=== PATIENT | male | born 1965 | race Caucasian/White ===

== ENCOUNTER 2016-12-20 16:18 | Inpatient (IN) | payer MEDICARE, MEDICAID ==
[~2016-12-20] VITALS: Ht 167.6 cm; Wt 106.1 kg
[~2016-12-20 16:18] MED LIST: FLUO20CA30 PO
[2016-12-20 18:23] LABS: ANION GAP 21 mmol/L (8-16); CALCIUM, TOTAL 9.5 mg/dL (8.8-10.5); CARBON DIOXIDE 20 mmol/L (22-29); CHLORIDE 103 mmol/L (98-107); CREATININE 2.16 mg/dL (0.60-1.30); GLOMERULAR FILTR. RATE CALC 32 mL/min (>60); POTASSIUM 3.8 mmol/L (3.5-5.1); SODIUM SERUM 144 mmol/L (136-145); UREA NITROGEN, BLOOD 12 mg/dL (7-18)
[2016-12-20 18:30] LABS: BASOPHILS % (AUTO) 0.3 % (0.0-2.0); EOSINOPHILS % (AUTO) 0 % (1.0-6.0); HEMOGLOBIN 14.3 g/dL (13.5-17.5); LYMPHOCYTES # (AUTO) 1.9 K/uL (1.0-4.8); LYMPHOCYTES % (AUTO) 10.7 % (22.0-44.0); MEAN CORPUSCULAR HEMOGLOBIN 27.1 pg (26.0-34.0); MEAN CORPUSCULAR HGB CONC 32.4 G/dL (31.0-37.0); MEAN CORPUSCULAR VOLUME 83 fL (80-100); MONOCYTES # (AUTO) 0.7 K/uL (0.1-1.0); MONOCYTES % (AUTO) 3.7 % (2.0-9.0); NEUTROPHILS # (AUTO) 15.4 K/uL (1.8-7.7); NEUTROPHILS % (AUTO) 85.3 % (40.0-70.0); PLATELET COUNT (AUTO) 392 K/uL (150-450); RED BLOOD CELL COUNT(AUTO) 5.27 MIL/uL (4.50-5.90); RED CELL DISTRIBUTION WIDTH 14.2 % (11.5-14.5); WHITE BLOOD COUNT (AUTO) 18.1 K/uL (4.5-11.0)
[2016-12-20 18:31] LABS: ALANINE AMINOTRANSFERASE 50 U/L (12-78); ALBUMIN 4.3 g/dL (3.4-5.0); ASPARTATE AMINOTRANSFERASE 38 U/L (15-37); BILIRUBIN,TOTAL 0.8 mg/dL (0.1-1.0)
[2016-12-20] MEDS ORDERED: LORazepam 2 MG TABLET PO PRN (20:00)
[2016-12-20] MEDS ORDERED: HALOPERIDOL 5 MG TABLET PO PRN ×2 (20:00→20:45)
[2016-12-20] MEDS ORDERED: ZOLPIDEM TARTRATE 10 MG TABLET PO PRN ×2 (20:00→20:45)
[2016-12-21] VITALS (8 sets, daily range): BP systolic 110–136; BP diastolic 57–90
[2016-12-21] MEDS ORDERED: INFLUENZA VIRUS VACCINE QVS 2016-17 (3YR+)/PF 60 MCG/0.5 ML SYRINGE IM ONE (01:30)
[2016-12-21] MEDS: LORazepam 2 MG TABLET PO PRN ×2 (02:16→07:46)
[2016-12-21] MEDS ORDERED: LORazepam 2 MG TABLET PO PRN (12:00)
[2016-12-21] MEDS ORDERED: CYANOCOBALAMIN 1,000 MCG/ML VIAL IM SCH (12:15)
[2016-12-21] MEDS ORDERED: MAG HYDROX/AL HYDROX/SIMETH ES 30 ML SUSPENSION UDCUP PO PRN (12:30)
[2016-12-21] MEDS ORDERED: MAGNESIUM HYDROXIDE SUSPENSION 30 ML UDCUP PO PRN (12:30)
[2016-12-21] MEDS ORDERED: CloNIDine HCL 0.1 MG TABLET PO PRN (12:30)
[2016-12-21] MEDS ORDERED: BENZOCAINE/MENTHOL LOZENGE MM PRN (12:30)
[2016-12-21] MEDS ORDERED: BACITRACIN 28.4 GM OINTMENT TP PRN (12:30)
[2016-12-21] MEDS ORDERED: PETROLATUM,WHITE 71 GM JELLY TP PRN (12:30)
[2016-12-21] MEDS ORDERED: LOPERAMIDE HCL 2 MG CAPSULE PO PRN (12:30)
[2016-12-21] MEDS ORDERED: IBUPROFEN 600 MG TABLET PO PRN (12:30)
[2016-12-21] MEDS ORDERED: ACETAMINOPHEN 325 MG TABLET PO PRN (12:30)
[2016-12-21] MEDS ORDERED: ONDANSETRON HCL 4 MG TABLET PO PRN (12:30)
[2016-12-21] MEDS ORDERED: ALBUTEROL SULFATE HFA 90 MCG/PUFF 8 GM INHALER IH PRN (12:30)
[2016-12-21] MEDS: FOLIC ACID 1 MG TABLET PO SCH (12:50)
[2016-12-21] MEDS: MULTIVITAMINS WITH MINERALS, THERAPEUTIC TABLET PO SCH (12:50)
[2016-12-21] MEDS: LORazepam 2 MG TABLET PO SCH ×4 (12:52→21:14)
[2016-12-21] MEDS: THIAMINE HCL 100 MG TABLET PO SCH (18:01)
[2016-12-21] MEDS: RisperiDONE 1 MG TABLET PO SCH (21:14)
[2016-12-22 03:00] VITALS: BP 127/77
[2016-12-22 07:00] VITALS: BP 135/83
[2016-12-22 07:08] LABS: BASOPHILS % (AUTO) 0.3 % (0.0-2.0); EOSINOPHILS % (AUTO) 0.7 % (1.0-6.0); HEMATOCRIT 42.6 % (41-53); HEMOGLOBIN 13.7 g/dL (13.5-17.5); LYMPHOCYTES # (AUTO) 1.4 K/uL (1.0-4.8); LYMPHOCYTES % (AUTO) 14.6 % (22.0-44.0); MEAN CORPUSCULAR HEMOGLOBIN 27.2 pg (26.0-34.0); MEAN CORPUSCULAR HGB CONC 32.2 G/dL (31.0-37.0); MEAN CORPUSCULAR VOLUME 84 fL (80-100); MONOCYTES # (AUTO) 0.7 K/uL (0.1-1.0); NEUTROPHILS # (AUTO) 7.3 K/uL (1.8-7.7); NEUTROPHILS % (AUTO) 77.4 % (40.0-70.0); PLATELET COUNT (AUTO) 331 K/uL (150-450); RED BLOOD CELL COUNT(AUTO) 5.05 MIL/uL (4.50-5.90); RED CELL DISTRIBUTION WIDTH 14.3 % (11.5-14.5); WHITE BLOOD COUNT (AUTO) 9.5 K/uL (4.5-11.0)
[2016-12-22 07:52] LABS: ALANINE AMINOTRANSFERASE 41 U/L (12-78); ALBUMIN 3.2 g/dL (3.4-5.0); ANION GAP 10 mmol/L (8-16); ASPARTATE AMINOTRANSFERASE 25 U/L (15-37); BILIRUBIN,TOTAL 0.6 mg/dL (0.1-1.0); CALCIUM, TOTAL 8.3 mg/dL (8.8-10.5); CARBON DIOXIDE 28 mmol/L (22-29); CHLORIDE 106 mmol/L (98-107); CHOL/HDL RATIO 3.3 (4.2-7.3); GLOMERULAR FILTR. RATE CALC > 60 mL/min (>60); PHOSPHORUS 2.4 mg/dL (2.5-4.9); POTASSIUM 3.5 mmol/L (3.5-5.1); SODIUM SERUM 144 mmol/L (136-145); THYROID STIMULATING HORMONE 0.86 uIU/mL (0.36-3.74); TOTAL PROTEIN, SERUM 6.6 g/dL (6.4-8.2); UREA NITROGEN, BLOOD 14 mg/dL (7-18)
[2016-12-22 08:05] VITALS: BP 131/85
[2016-12-22] MEDS: FLUoxetine HCL 20 MG CAPSULE PO SCH (09:01)
[2016-12-22] MEDS: LORazepam 2 MG TABLET PO SCH ×3 (09:02→16:29)
[2016-12-22] MEDS: FOLIC ACID 1 MG TABLET PO SCH (09:02)
[2016-12-22] MEDS: THIAMINE HCL 100 MG TABLET PO SCH ×2 (09:03→16:29)
[2016-12-22] MEDS: MULTIVITAMINS WITH MINERALS, THERAPEUTIC TABLET PO SCH (09:03)
[2016-12-22 11:00] VITALS: BP 136/92
[2016-12-22 19:01] VITALS: BP 137/92
[2016-12-22] MEDS: RisperiDONE 1 MG TABLET PO SCH (20:19)
[2016-12-23 06:27] VITALS: BP 123/76
[2016-12-23] MEDS ORDERED: LORazepam 1 MG TABLET PO PRN (07:00)
[2016-12-23 08:07] VITALS: BP 114/64
[2016-12-23 09:22] LABS: HEPATITIS Bs ANTIGEN SCREEN P Negative (Negative); HEPATITIS C AB SCREEN <0.1 s/co ratio (0.0-0.9)
[2016-12-23] MEDS: FOLIC ACID 1 MG TABLET PO SCH (09:50)
[2016-12-23] MEDS: THIAMINE HCL 100 MG TABLET PO SCH ×2 (09:50→17:23)
[2016-12-23] MEDS: FLUoxetine HCL 20 MG CAPSULE PO SCH (09:51)
[2016-12-23] MEDS: MULTIVITAMINS WITH MINERALS, THERAPEUTIC TABLET PO SCH (09:51)
[2016-12-23] MEDS: LORazepam 1 MG TABLET PO SCH ×4 (09:52→20:30)
[2016-12-23 16:30] VITALS: BP 131/81
[2016-12-23] MEDS: RisperiDONE 1 MG TABLET PO SCH (20:30)
[2016-12-24 06:25] VITALS: BP 106/60
[2016-12-24] MEDS ORDERED: LORazepam 1 MG TABLET PO PRN (07:00)
[2016-12-24 08:13] VITALS: BP 118/78
[2016-12-24] MEDS: FLUoxetine HCL 20 MG CAPSULE PO SCH (09:41)
[2016-12-24] MEDS: MULTIVITAMINS WITH MINERALS, THERAPEUTIC TABLET PO SCH (09:41)
[2016-12-24] MEDS: CHOLECALCIFEROL (VIT D3) 1,000 UNITS TABLET PO SCH (09:41)
[2016-12-24] MEDS: THIAMINE HCL 100 MG TABLET PO SCH ×2 (09:41→17:08)
[2016-12-24] MEDS: FOLIC ACID 1 MG TABLET PO SCH (09:42)
[2016-12-24 18:04] VITALS: BP 127/94
[2016-12-24] MEDS: RisperiDONE 1 MG TABLET PO SCH (20:02)
[2016-12-25 05:11] VITALS: BP 119/80
[2016-12-25 08:24] VITALS: BP 135/95
[2016-12-25] MEDS: THIAMINE HCL 100 MG TABLET PO SCH ×2 (09:41→16:06)
[2016-12-25] MEDS: CHOLECALCIFEROL (VIT D3) 1,000 UNITS TABLET PO SCH (09:41)
[2016-12-25] MEDS: MULTIVITAMINS WITH MINERALS, THERAPEUTIC TABLET PO SCH (09:42)
[2016-12-25] MEDS: FLUoxetine HCL 20 MG CAPSULE PO SCH (09:42)
[2016-12-25] MEDS: FOLIC ACID 1 MG TABLET PO SCH (09:42)
[2016-12-25] MEDS: RisperiDONE 1 MG TABLET PO SCH (20:14)
[2016-12-25 20:57] VITALS: BP 126/85
[2016-12-26 08:00] VITALS: BP 108/68
[2016-12-26] MEDS ORDERED: RISP1 PO (08:46)
[2016-12-26] MEDS: FOLIC ACID 1 MG TABLET PO SCH (09:45)
[2016-12-26] MEDS: FLUoxetine HCL 20 MG CAPSULE PO SCH (09:45)
[2016-12-26] MEDS: MULTIVITAMINS WITH MINERALS, THERAPEUTIC TABLET PO SCH (09:45)
[2016-12-26] MEDS: CHOLECALCIFEROL (VIT D3) 1,000 UNITS TABLET PO SCH (09:45)
[2016-12-26] MEDS: THIAMINE HCL 100 MG TABLET PO SCH (09:45)
== END 2016-12-26 12:35 | disposition home or self-care (01) | DRG 885 ==
LOC: EMS 16:24 → 3EI 23:45
PROC: 3E0234Z Introduction of Serum, Toxoid and Vaccine into Muscle, Percutaneous Approach (ICD-10-PCS; principal; 2016-12-21)
DX: F33.3 Major depressive disorder, recurrent, severe with psychotic symptoms (principal); R45.851 Suicidal ideations; N17.9 Acute kidney failure, unspecified; F20.0 Paranoid schizophrenia; E86.0 Dehydration; G89.29 Other chronic pain; M54.9 Dorsalgia, unspecified; E66.9 Obesity, unspecified; J44.9 Chronic obstructive pulmonary disease, unspecified; R74.0 Nonspecific elevation of levels of transaminase and lactic acid dehydrogenase [LDH]; F17.210 Nicotine dependence, cigarettes, uncomplicated; F15.10 Other stimulant abuse, uncomplicated; F10.10 Alcohol abuse, uncomplicated; Z71.6 Tobacco abuse counseling; Z79.899 Other long term (current) drug therapy; Z71.41 Alcohol abuse counseling and surveillance of alcoholic; Z71.51 Drug abuse counseling and surveillance of drug abuser; Z23 Encounter for immunization; Z68.37 Body mass index [BMI] 37.0-37.9, adult; Z91.5 Personal history of self-harm
CPT/HCPCS: 80074; 82306; 83735; 84100; 84443; 90471; 99285; G0480; J3420; J3535

== ENCOUNTER 2017-08-14 17:51 | Inpatient (IN) | payer MEDICARE, MEDICAID ==
[~2017-08-14] VITALS: Ht 167.6 cm; Wt 92.6 kg
[~2017-08-14 17:51] MED LIST changes: +RISP1 PO
[2017-08-14 19:16] LABS: BASOPHILS # (AUTO) 0.01 K/uL (0.00-0.20); BASOPHILS % (AUTO) 0.1 % (0.0-2.0); EOSINOPHILS # (AUTO) 0.03 K/uL (0.00-0.70); EOSINOPHILS % (AUTO) 0.21 % (1.0-6.0); HEMATOCRIT 44.9 % (41-53); HEMOGLOBIN 15.1 g/dL (13.5-17.5); LYMPHOCYTES # (AUTO) 1.9 K/uL (1.0-4.8); LYMPHOCYTES % (AUTO) 12.8 % (22.0-44.0); MEAN CORPUSCULAR HEMOGLOBIN 31.5 pg (26.0-34.0); MEAN CORPUSCULAR HGB CONC 33.7 G/dL (31.0-37.0); MEAN CORPUSCULAR VOLUME 93 fL (80-100); MONOCYTES # (AUTO) 0.2 K/uL (0.1-1.0); MONOCYTES % (AUTO) 1.4 % (2.0-9.0); NEUTROPHILS # (AUTO) 12.9 K/uL (1.8-7.7); PLATELET COUNT (AUTO) 326 K/uL (150-450); RED BLOOD CELL COUNT(AUTO) 4.81 MIL/uL (4.50-5.90); RED CELL DISTRIBUTION WIDTH 14.2 % (11.5-14.5)
[2017-08-14 19:20] LABS: NEUTROPHILS % (AUTO) 85.5 % (40.0-70.0)
[2017-08-14 19:30] LABS: ANION GAP 10 mmol/L (8-16); CALCIUM, TOTAL 8.9 mg/dL (8.8-10.5); CARBON DIOXIDE 24 mmol/L (22-29); CHLORIDE 103 mmol/L (98-107); CREATININE 1.13 mg/dL (0.60-1.30); GLOMERULAR FILTR. RATE CALC > 60 mL/min (>60); GLUCOSE,RANDOM 102 mg/dL (70-110); POTASSIUM 4.1 mmol/L (3.5-5.1); SODIUM SERUM 137 mmol/L (136-145); UREA NITROGEN, BLOOD 13 mg/dL (7-18)
[2017-08-14 19:44] LABS: ALANINE AMINOTRANSFERASE 29 U/L (12-78); ALBUMIN 4.1 g/dL (3.4-5.0); ALKALINE PHOSPHATASE 113 U/L (46-116); ASPARTATE AMINOTRANSFERASE 30 U/L (15-37); BILIRUBIN,TOTAL 0.7 mg/dL (0.1-1.0); TOTAL PROTEIN, SERUM 7.5 g/dL (6.4-8.2)
[2017-08-14] MEDS ORDERED: LORazepam 2 MG TABLET PO PRN (19:45)
[2017-08-14] MEDS ORDERED: OLANZapine 5 MG RAPDIS TABLET PO PRN (19:45)
[2017-08-14 20:22] LABS: CHOL/HDL RATIO 3.7 (4.2-7.3); CHOLESTEROL 197 mg/dL (131-200); HDL CHOLESTEROL 53 mg/dL (40-60); LDL CHOL (CALC.) 134 mg/dL (0-130); THYROID STIMULATING HORMONE 0.73 uIU/mL (0.36-3.74); TRIGLYCERIDES 50 mg/dL (15-150)
[2017-08-14 20:59] LABS: APPEARANCE,URINE CLOUDY (CLEAR); BILIRUBIN,URINE NEGATIVE (NEGATIVE); GLUCOSE, URINE (UA) NEGATIVE (NEGATIVE); KETONES,URINE 15 mg/dL (NEGATIVE); LEUKOCYTE ESTERASE ,URINE NEGATIVE (NEGATIVE); NITRATE,URINE NEGATIVE (NEGATIVE); OCCULT BLOOD,URINE NEGATIVE (NEGATIVE); PROTEIN,URINE NEGATIVE (NEGATIVE); UROBILINOGEN,URINE 0.2 mg/dL (<=1.0)
[2017-08-14 21:02] LABS: AMPHET/METH SCREEN,URINE POSITIVE (NEGATIVE); BARBITURATE SCREEN, URINE NEGATIVE (NEGATIVE); BENZODIAZEPINES SCREEN,URINE NEGATIVE (NEGATIVE); CANNABINOID SCREEN,URINE NEGATIVE (NEGATIVE); COCAINE SCREEN,URINE NEGATIVE (NEGATIVE); METHADONE SCREEN, URINE NEGATIVE (NEGATIVE); OPIATE SCREEN,URINE NEGATIVE (NEGATIVE); PHENCYCLIDINE SCREEN,URINE NEGATIVE (NEGATIVE)
[2017-08-14 21:45] VITALS: BP 151/97
[2017-08-14 22:04] VITALS: BP 151/97
[2017-08-14 22:50] VITALS: BP 122/77
[2017-08-14 22:52] VITALS: BP 122/77
[2017-08-14 23:49] VITALS: BP 120/74
[2017-08-15] VITALS (9 sets, daily range): BP systolic 108–122; BP diastolic 63–80
[2017-08-15] MEDS ORDERED: PNEUMOCOCCAL VACCINE POLYVALENT 0.5 ML VIAL [PPSV23] IM ONE (04:30)
[2017-08-15] MEDS: NICOTINE 21 MG/24 HOUR PATCH TD SCH (08:12)
[2017-08-15] MEDS ORDERED: MAGNESIUM HYDROXIDE SUSPENSION 30 ML UDCUP PO PRN (11:30)
[2017-08-15] MEDS ORDERED: TUBERCULIN, PURIFIED PROTEIN DERIVATIVE 5 TU/0.1 ML SYG ID ONE (11:30)
[2017-08-15] MEDS ORDERED: LORazepam 2 MG TABLET PO PRN (11:30)
[2017-08-15] MEDS ORDERED: HydrOXYzine PAMOATE 50 MG CAPSULE PO PRN (11:30)
[2017-08-15] MEDS ORDERED: MAG HYDROX/AL HYDROX/SIMETH ES 30 ML SUSPENSION UDCUP PO PRN (11:30)
[2017-08-15] MEDS ORDERED: LOPERAMIDE HCL 2 MG CAPSULE PO PRN ×2 (11:30)
[2017-08-15] MEDS ORDERED: GuaiFENesin/D-METHORPHAN [SUGAR-FREE] 200-20MG/10 ML SYRUP UDCUP PO PRN (11:30)
[2017-08-15] MEDS ORDERED: PROMETHAZINE HCL 25 MG TABLET PO PRN (11:30)
[2017-08-15] MEDS ORDERED: CYANOCOBALAMIN 1,000 MCG/ML VIAL IM ONE (11:30)
[2017-08-15] MEDS: THIAMINE HCL 100 MG TABLET PO SCH (16:15)
[2017-08-15] MEDS: OLANZapine 5 MG RAPDIS TABLET PO SCH (20:31)
[2017-08-16] VITALS (8 sets, daily range): BP systolic 100–121; BP diastolic 61–83
[2017-08-16] MEDS ORDERED: LORazepam 2 MG TABLET PO PRN (07:00)
[2017-08-16 08:43] LABS: BASOPHILS % (AUTO) 0.5 % (0.0-2.0); EOSINOPHILS % (AUTO) 3.5 % (1.0-6.0); HEMATOCRIT 44.7 % (41-53); HEMOGLOBIN 15.1 g/dL (13.5-17.5); LYMPHOCYTES # (AUTO) 2.5 K/uL (1.0-4.8); LYMPHOCYTES % (AUTO) 35.8 % (22.0-44.0); MEAN CORPUSCULAR HGB CONC 33.7 G/dL (31.0-37.0); MEAN CORPUSCULAR VOLUME 95 fL (80-100); MONOCYTES # (AUTO) 0.5 K/uL (0.1-1.0); MONOCYTES % (AUTO) 7.8 % (2.0-9.0); NEUTROPHILS # (AUTO) 3.6 K/uL (1.8-7.7); NEUTROPHILS % (AUTO) 52.4 % (40.0-70.0); PLATELET COUNT (AUTO) 272 K/uL (150-450); RED BLOOD CELL COUNT(AUTO) 4.71 MIL/uL (4.50-5.90); RED CELL DISTRIBUTION WIDTH 14.5 % (11.5-14.5)
[2017-08-16] MEDS: NICOTINE 21 MG/24 HOUR PATCH TD SCH (08:46)
[2017-08-16] MEDS: NALTREXONE HCL 50 MG TABLET PO SCH (08:46)
[2017-08-16] MEDS: FOLIC ACID 1 MG TABLET PO SCH (08:46)
[2017-08-16] MEDS: CHOLECALCIFEROL (VIT D3) 1,000 UNITS TABLET PO SCH (08:46)
[2017-08-16] MEDS: MULTIVITAMINS WITH MINERALS, THERAPEUTIC TABLET PO SCH (08:46)
[2017-08-16] MEDS: FLUoxetine HCL 20 MG CAPSULE PO SCH (08:46)
[2017-08-16] MEDS: THIAMINE HCL 100 MG TABLET PO SCH ×2 (08:46→16:39)
[2017-08-16] MEDS: LORazepam 2 MG TABLET PO SCH ×4 (08:55→20:40)
[2017-08-16] MEDS: OLANZapine 5 MG RAPDIS TABLET PO SCH (20:40)
[2017-08-17 01:36] VITALS: BP 101/64
[2017-08-17 08:29] VITALS: BP 110/71
[2017-08-17 08:30] VITALS: BP 101/64
[2017-08-17] MEDS: CHOLECALCIFEROL (VIT D3) 1,000 UNITS TABLET PO SCH (09:02)
[2017-08-17] MEDS: THIAMINE HCL 100 MG TABLET PO SCH ×2 (09:02→16:49)
[2017-08-17] MEDS: NALTREXONE HCL 50 MG TABLET PO SCH (09:02)
[2017-08-17] MEDS: FLUoxetine HCL 20 MG CAPSULE PO SCH (09:02)
[2017-08-17] MEDS: MULTIVITAMINS WITH MINERALS, THERAPEUTIC TABLET PO SCH (09:02)
[2017-08-17] MEDS: LORazepam 2 MG TABLET PO SCH ×4 (09:02→20:43)
[2017-08-17] MEDS: FOLIC ACID 1 MG TABLET PO SCH (09:02)
[2017-08-17] MEDS: NICOTINE 21 MG/24 HOUR PATCH TD SCH (09:03)
[2017-08-17 13:00] VITALS: BP 118/80
[2017-08-17 16:17] VITALS: BP 114/82
[2017-08-17 16:34] VITALS: BP 114/82
[2017-08-17] MEDS: OLANZapine 5 MG RAPDIS TABLET PO SCH (20:43)
[2017-08-17] MEDS: ZOLPIDEM TARTRATE 10 MG TABLET PO PRN (22:05)
[2017-08-18 02:23] VITALS: BP 119/82
[2017-08-18] MEDS ORDERED: LORazepam 1 MG TABLET PO PRN (07:00)
[2017-08-18 08:51] VITALS: BP 135/91
[2017-08-18] MEDS: NALTREXONE HCL 50 MG TABLET PO SCH (08:53)
[2017-08-18] MEDS: FOLIC ACID 1 MG TABLET PO SCH (08:53)
[2017-08-18] MEDS: MULTIVITAMINS WITH MINERALS, THERAPEUTIC TABLET PO SCH (08:53)
[2017-08-18] MEDS: CHOLECALCIFEROL (VIT D3) 1,000 UNITS TABLET PO SCH (08:53)
[2017-08-18] MEDS: FLUoxetine HCL 20 MG CAPSULE PO SCH (08:53)
[2017-08-18] MEDS: THIAMINE HCL 100 MG TABLET PO SCH ×2 (08:53→17:09)
[2017-08-18] MEDS: NICOTINE 21 MG/24 HOUR PATCH TD SCH (08:54)
[2017-08-18] MEDS: LORazepam 1 MG TABLET PO SCH ×4 (08:54→20:45)
[2017-08-18 19:06] VITALS: BP 112/81
[2017-08-18] MEDS: OLANZapine 5 MG RAPDIS TABLET PO SCH (20:45)
[2017-08-18] MEDS: ZOLPIDEM TARTRATE 10 MG TABLET PO PRN (21:49)
[2017-08-19 01:43] VITALS: BP 118/80
[2017-08-19] MEDS ORDERED: LORazepam 1 MG TABLET PO PRN (07:00)
[2017-08-19 08:32] VITALS: BP 111/65
[2017-08-19] MEDS: NALTREXONE HCL 50 MG TABLET PO SCH (08:50)
[2017-08-19] MEDS: THIAMINE HCL 100 MG TABLET PO SCH ×2 (08:50→16:21)
[2017-08-19] MEDS: FLUoxetine HCL 20 MG CAPSULE PO SCH (08:50)
[2017-08-19] MEDS: MULTIVITAMINS WITH MINERALS, THERAPEUTIC TABLET PO SCH (08:50)
[2017-08-19] MEDS: CHOLECALCIFEROL (VIT D3) 1,000 UNITS TABLET PO SCH (08:50)
[2017-08-19] MEDS: FOLIC ACID 1 MG TABLET PO SCH (08:50)
[2017-08-19] MEDS: NICOTINE 21 MG/24 HOUR PATCH TD SCH (08:51)
[2017-08-19 16:14] VITALS: BP 118/76
[2017-08-19 17:37] VITALS: BP 118/76
[2017-08-19] MEDS: OLANZapine 5 MG RAPDIS TABLET PO SCH (20:26)
[2017-08-20 06:27] VITALS: BP 117/77
[2017-08-20 08:04] VITALS: BP 110/65
[2017-08-20] MEDS: THIAMINE HCL 100 MG TABLET PO SCH ×2 (08:32→16:07)
[2017-08-20] MEDS: CHOLECALCIFEROL (VIT D3) 1,000 UNITS TABLET PO SCH (08:32)
[2017-08-20] MEDS: NALTREXONE HCL 50 MG TABLET PO SCH (08:32)
[2017-08-20] MEDS: FLUoxetine HCL 20 MG CAPSULE PO SCH (08:32)
[2017-08-20] MEDS: FOLIC ACID 1 MG TABLET PO SCH (08:32)
[2017-08-20] MEDS: MULTIVITAMINS WITH MINERALS, THERAPEUTIC TABLET PO SCH (08:33)
[2017-08-20] MEDS: NICOTINE 21 MG/24 HOUR PATCH TD SCH (08:33)
[2017-08-20] MEDS: ACETAMINOPHEN 325 MG TABLET PO PRN (08:35)
[2017-08-20 16:15] VITALS: BP 123/89
[2017-08-20] MEDS: OLANZapine 5 MG RAPDIS TABLET PO SCH (20:16)
[2017-08-21 00:07] VITALS: BP 122/81
[2017-08-21] MEDS: ACETAMINOPHEN 325 MG TABLET PO PRN ×3 (00:10→20:55)
[2017-08-21] MEDS: FOLIC ACID 1 MG TABLET PO SCH (08:15)
[2017-08-21] MEDS: FLUoxetine HCL 20 MG CAPSULE PO SCH (08:15)
[2017-08-21] MEDS: CHOLECALCIFEROL (VIT D3) 1,000 UNITS TABLET PO SCH (08:15)
[2017-08-21] MEDS: THIAMINE HCL 100 MG TABLET PO SCH ×2 (08:15→16:37)
[2017-08-21] MEDS: NALTREXONE HCL 50 MG TABLET PO SCH (08:15)
[2017-08-21] MEDS: MULTIVITAMINS WITH MINERALS, THERAPEUTIC TABLET PO SCH (08:15)
[2017-08-21] MEDS: NICOTINE 21 MG/24 HOUR PATCH TD SCH (08:17)
[2017-08-21 08:33] VITALS: BP 112/74
[2017-08-21] MEDS ORDERED: FLUO-191 PO (10:58)
[2017-08-21] MEDS ORDERED: OLAN5TAB30 PO (10:58)
[2017-08-21] MEDS ORDERED: NALT50TA PO (10:58)
[2017-08-21 12:16] VITALS: BP 116/72
[2017-08-21 16:10] VITALS: BP 116/80
[2017-08-21] MEDS: OLANZapine 5 MG RAPDIS TABLET PO SCH (20:55)
[2017-08-21 20:56] VITALS: BP 122/86
[2017-08-22 06:44] VITALS: BP 121/89
[2017-08-22 08:17] VITALS: BP 120/78
[2017-08-22] MEDS: MULTIVITAMINS WITH MINERALS, THERAPEUTIC TABLET PO SCH (08:18)
[2017-08-22] MEDS: THIAMINE HCL 100 MG TABLET PO SCH (08:18)
[2017-08-22] MEDS: NALTREXONE HCL 50 MG TABLET PO SCH (08:18)
[2017-08-22] MEDS: FLUoxetine HCL 20 MG CAPSULE PO SCH (08:18)
[2017-08-22] MEDS: FOLIC ACID 1 MG TABLET PO SCH (08:18)
[2017-08-22] MEDS: CHOLECALCIFEROL (VIT D3) 1,000 UNITS TABLET PO SCH (08:18)
[2017-08-22] MEDS: NICOTINE 21 MG/24 HOUR PATCH TD SCH (08:20)
== END 2017-08-22 14:23 | disposition home or self-care (01) | DRG 885 ==
LOC: EMS 17:57 → B2X 20:24
PROVIDERS: ADMIT Psychiatry & Neurology Psychiatry; ATTEND Psychiatry & Neurology Psychiatry
DX: F25.9 Schizoaffective disorder, unspecified (principal); R45.851 Suicidal ideations; Z91.14 Patient's other noncompliance with medication regimen; E55.9 Vitamin D deficiency, unspecified; E66.9 Obesity, unspecified; F15.10 Other stimulant abuse, uncomplicated; F17.210 Nicotine dependence, cigarettes, uncomplicated; G89.29 Other chronic pain; F31.9 Bipolar disorder, unspecified; D72.829 Elevated white blood cell count, unspecified; J44.9 Chronic obstructive pulmonary disease, unspecified; Z65.3 Problems related to other legal circumstances; Z79.899 Other long term (current) drug therapy; Z71.6 Tobacco abuse counseling; Z68.33 Body mass index [BMI] 33.0-33.9, adult
CPT/HCPCS: 71020; 84443; 96372; 99285; G0480; J3420

== ENCOUNTER 2017-08-30 00:29 | Emergency (ER) | payer MEDICARE, MEDICAID ==
[~2017-08-30] VITALS: Ht 167.6 cm; Wt 90.9 kg
[~2017-08-30 00:29] MED LIST changes: +FLUO-191 PO; -FLUO20CA30 PO; +NALT50TA PO; +OLAN5TAB30 PO; -RISP1 PO
[2017-08-30 00:58] LABS: BASOPHILS % (AUTO) 0.4 % (0.0-2.0); EOSINOPHILS % (AUTO) 0.3 % (1.0-6.0); HEMOGLOBIN 13.8 g/dL (13.5-17.5); LYMPHOCYTES # (AUTO) 1.5 K/uL (1.0-4.8); LYMPHOCYTES % (AUTO) 11.9 % (22.0-44.0); MEAN CORPUSCULAR HEMOGLOBIN 31.7 pg (26.0-34.0); MEAN CORPUSCULAR HGB CONC 34.4 G/dL (31.0-37.0); MEAN CORPUSCULAR VOLUME 92 fL (80-100); MONOCYTES # (AUTO) 0.6 K/uL (0.1-1.0); MONOCYTES % (AUTO) 4.8 % (2.0-9.0); NEUTROPHILS # (AUTO) 10.7 K/uL (1.8-7.7); NEUTROPHILS % (AUTO) 82.6 % (40.0-70.0); PLATELET COUNT (AUTO) 300 K/uL (150-450); RED BLOOD CELL COUNT(AUTO) 4.35 MIL/uL (4.50-5.90); RED CELL DISTRIBUTION WIDTH 13.8 % (11.5-14.5); WHITE BLOOD COUNT (AUTO) 12.9 K/uL (4.5-11.0)
[2017-08-30 01:05] LABS: CALCIUM, TOTAL 8.7 mg/dL (8.8-10.5); CREATININE 1.39 mg/dL (0.60-1.30)
[2017-08-30 01:11] LABS: ALBUMIN 3.6 g/dL (3.4-5.0); BILIRUBIN,TOTAL 0.5 mg/dL (0.1-1.0); TOTAL PROTEIN, SERUM 7.3 g/dL (6.4-8.2)
[2017-08-30 01:30] VITALS: BP 139/81
[2017-08-30] MEDS ORDERED: BACITRACIN 0.9 GM PACKET OINTMENT TP ONE (01:45)
== END 2017-08-30 01:58 | disposition home or self-care (01) ==
LOC: EMS 00:31
DX: R46.89 Other symptoms and signs involving appearance and behavior (principal); F10.229 Alcohol dependence with intoxication, unspecified; F15.10 Other stimulant abuse, uncomplicated; F31.9 Bipolar disorder, unspecified; F20.9 Schizophrenia, unspecified; F17.210 Nicotine dependence, cigarettes, uncomplicated; Y90.3 Blood alcohol level of 60-79 mg/100 ml
CPT/HCPCS: 36415; 80053; 85025; 99285; G0480